=== PATIENT | female | born 1975 | race African-American/Black ===

== ENCOUNTER 2018-01-07 10:54 | Emergency (ER) | payer MEDICAID, OTHER ==
[~2018-01-07 10:54] MED LIST: FURO-151 PO; HYDR12.54 PO; LEVO200T8 PO; METF10002 PO
== END 2018-01-07 17:39 | disposition left against medical advice (07) ==
LOC: ER 13:17
DX: M79.673 Pain in unspecified foot (principal); Z53.21 Procedure and treatment not carried out due to patient leaving prior to being seen by health care provider

== ENCOUNTER 2018-05-15 22:01 | Emergency (ER) | payer OTHER ==
[~2018-05-15 22:01] MED LIST changes: -METF10002 PO; +METF10004 PO
== END 2018-05-15 23:28 | disposition left against medical advice (07) ==
LOC: ER 22:01
DX: M54.2 Cervicalgia (principal); Z53.21 Procedure and treatment not carried out due to patient leaving prior to being seen by health care provider

== ENCOUNTER 2024-12-22 15:22 | Emergency (ER) | payer OTHER ==
[~2024-12-22] VITALS: Ht 165.1 cm; Wt 136.0 kg
[~2024-12-22 15:22] MED LIST changes: +METF-416 PO; -METF10004 PO
[2024-12-22 15:26] VITALS: BP 157/97; PULSE 82; RESP 18; TEMP 37.2; O2SAT 98
== END 2024-12-22 18:23 | disposition home or self-care (01) ==
LOC: ER 15:22
DX: M79.10 Myalgia, unspecified site (principal); M25.50 Pain in unspecified joint; E03.9 Hypothyroidism, unspecified; Z90.49 Acquired absence of other specified parts of digestive tract; Z79.899 Other long term (current) drug therapy; Z79.890 Hormone replacement therapy; Z79.84 Long term (current) use of oral hypoglycemic drugs; Z88.1 Allergy status to other antibiotic agents; Z88.2 Allergy status to sulfonamides
CPT/HCPCS: 99281